=== PATIENT | female | born 1960 | race Caucasian/White ===

== ENCOUNTER 2019-02-03 10:23 | Day surgery (SDC) | payer BC ==
[2019-02-03] MEDS ORDERED: Iopamidol 370 76% 100 ML VIAL ONE (10:53)
[2019-02-03] MEDS ORDERED: Heparin 10,000 UNITS/1 ML VIAL ONE (11:35)
[2019-02-03] MEDS ORDERED: Verapamil 5 MG/2 ML VIAL ONE (11:35)
[2019-02-03] MEDS ORDERED: Nitroglycerin 100MG/250ML BOT 250 ML ONE (11:41)
[2019-02-03] MEDS ORDERED: Midazolam HCl 2 mg/2 ml Vial ONE (12:28)
[2019-02-03] MEDS ORDERED: Fentanyl 100 MCG/2 ML VIAL ONE (12:28)
== END 2019-02-03 16:05 | disposition home or self-care (01) ==
LOC: CCL 10:23
PROVIDERS: ATTEND Internal Medicine Cardiovascular Disease
PROC: 4A023N7 Measurement of Cardiac Sampling and Pressure, Left Heart, Percutaneous Approach (ICD-10-PCS; principal; 2019-02-03)
PROC: B2111ZZ Fluoroscopy of Multiple Coronary Arteries using Low Osmolar Contrast (ICD-10-PCS; principal; 2019-02-03)
DX: I25.10 Atherosclerotic heart disease of native coronary artery without angina pectoris (principal); I73.9 Peripheral vascular disease, unspecified; I10 Essential (primary) hypertension; E87.6 Hypokalemia; E78.00 Pure hypercholesterolemia, unspecified; F17.210 Nicotine dependence, cigarettes, uncomplicated; Z79.02 Long term (current) use of antithrombotics/antiplatelets; Z79.899 Other long term (current) drug therapy
CPT/HCPCS: 76942; 93458; 99152; 99153; C1769; J1644; J2250; J3010; Q9967

== ENCOUNTER 2019-04-01 12:04 | Outpatient (CLI) | payer BC ==
--- NOTE | 2019-04-01 13:51 | RAD ---
XR Knee Rt 2 View HISTORY: Right knee pain FINDINGS: No fracture or dislocation is identified.
--- NOTE | 2019-04-01 13:59 | RAD ---
XR Knee Lt 2 View: 04/01/2019 12:00 AM CLINICAL INDICATION: Pain COMPARISON: None. FINDINGS: Fracture:No fracture. Arthropathy:None of significance. Incidental findings:Vascular calcification IMPRESSION: 1. No acute osseous abnormality.
== END 2019-04-01 12:05 | disposition home or self-care (01) ==
LOC: BICRAD 12:04
PROVIDERS: ATTEND Specialist
DX: M25.562 Pain in left knee (principal); M25.561 Pain in right knee

== ENCOUNTER 2019-05-13 09:30 | Outpatient (CLI) | payer BC ==
[2019-05-13] MEDS ORDERED: Iopamidol 370 76% 100 ML VIAL ONE (10:35)
--- NOTE | 2019-05-13 12:39 | CT ---
CT ANGIOGRAM OF THE ABDOMEN WITH BILATERAL LOWER EXTREMITY RUNOFF: Date: 05/13/19 COMPARISON: 04/13/15. TECHNIQUE: CT angiogram of the abdominal aorta and bilateral lower extremity runoff is performed in the axial pl ane. Three-dimensional reformatted images are submitted for interpretation. FINDINGS: ABDOMEN CT: Chronic changes in the lung bases. Heart size is normal. No significant pericardial fluid. There is appropriate arterial phase enhancement of the liver, spleen, pancreas, and adrenal glands. Surgically absent gallbladder. No gastrohepatic, retrocrural, or periportal lymphadenopathy. No mesenteric mass, lymphadenopathy, free air, or free fluid. Symmetric enhancement of the kidneys. No obstructive uropathy. Stable left extrarenal pelvis. Limited evaluation of the alimentary canal by the lack of oral contrast. No evidence of bowel obstruc tion. Ileocecal junction is normal. Scattered fecal material in nondistended colon. CT PELVIS: Hysterectomy changes. No pelvic mass, lymphadenopathy, free air, or free fluid. Urinary bladder is un remarkable. There are no lytic or blastic lesions in the osseous structures. Incidental dorsal column stimulator is noted with the distal tip not included on this exam. CT ANGIOGRAM OF AORTA: There is atherosclerosis of a nonaneurysmal descending thoracic aorta. Calcification without signific ant stenosis of the origin of the celiac artery. There is also calcification without significant sten osis in the origin of the superior mesenteric artery. Bilateral renal artery ostia are patent. There are two left renal arteries and a solitary right renal artery. There is a stent in the infrarenal abd ominal aorta which is patent. There is a bypass starting at the distal abdominal aorta. There is bypa ss of the [place] common iliac arteries which are occluded. The bypass appears to be patent. Right lower extremity: There is postsurgical change in the region of the right common femoral artery . The profunda femoral artery is patent. The superficial femoral artery is patent. The popliteal jessica ry and arterial trifurcation are patent. Left lower extremity: There is postsurgical change at the level of the common femoral artery. The co mmon femoral artery is patent. Short-segment moderate stenosis at the origin of the superficial femor al artery. The remainder of the superficial femoral artery is patent. Popliteal artery is patent. Art erial trifurcation is patent. The arteries of the lower extremity are also patent. IMPRESSION: Evidence of an aortobifemoral bypass which is patent. There is postsurgical change at the level of th e left and right common femoral arteries. There is no significant stenosis in either lower extremity arterial system. There is 3 vessel flow down to the level of the left and right ankle. POS: MARY KATE
== END 2019-05-13 09:31 | disposition home or self-care (01) ==
LOC: CT 09:30
PROVIDERS: ATTEND Internal Medicine Cardiovascular Disease
DX: I70.213 Atherosclerosis of native arteries of extremities with intermittent claudication, bilateral legs (principal); Z98.890 Other specified postprocedural states
CPT/HCPCS: 75635; 82565; Q9967

== ENCOUNTER 2019-11-24 12:44 | Outpatient (CLI) | payer BC ==
[2019-11-24] MEDS ORDERED: Iopamidol 370 76% 100 ML VIAL ONE (13:22)
--- NOTE | 2019-11-24 14:34 | CT ---
CT ANGIOGRAM NECK: DATE: 11/24/2019. COMPARISON: None available. HISTORY: Carotid stenosis on recent ultrasound. TECHNIQUE: Serial axial CT imaging at1.25 mm from thelung apices through skull base with IV contrast using CT an giogram protocol.. Coronal and sagittal 3D reformatted imaging. FINDINGS: There are significant bilateral pulmonary parenchymal emphysematous changes within the imaged lung ap ices. There is a nodule in the right upper lobe on axial image 46 and coronal image 52 measuring 5 mm. There is partial opacification of the ethmoid air cells bilaterally and there is partial opacificatio n of right mastoid air cells. There is evidence of bilateral paranasal sinus surgery. Mild mucosal thickening of the left maxillary sinus noted. Retroantral and parapharyngeal fat appears clear bilaterally. Bilateral parotid and submandibular gla nds unremarkable. Partially visualized subcarinal adenopathy noted measuring 1.8 cm in short axis dimension. There is l ymphadenopathy in the right tracheoesophageal groove measuring 1.3 cm in short axis dimension, best seen on axial image 72. Thyroid gland is diffusely prominent but otherwise unremarkable. Multiple mildly enlarged lymph nodes are noted within the right paratracheal region measuring up to 1 .3 cm in short axis dimension. Multiple mildly prominent lymph nodes are noted in the AP window. No discrete aerodigestive tract lesion noted on this examination. No lymphadenopathy is appreciated w ithin the neck on the right. No enlarged lymph nodes are noted within the neck on the left. Mildly prominent but nonenlarged level II lymph nodes are noted bilaterally. No hemodynamically significant stenosis is seen at the origin of the innominate artery, either common carotid artery, or either subclavian artery. Mild stenosis at the origin of the left common carotid artery noted on the basis of partially calcified plaque. There is a focal area of moderate st enosis at the origin of the left vertebral artery. Origin of the right vertebral artery appears grossly unremarkable. The left vertebral artery is dominant. The right vertebral artery is hypoplasti c and ends in PICA. On the basis of NASCET criteria there is no hemodynamically significant stenosis involving the right internal carotid artery or right common carotid artery. Mild calcified plaque noted at the origin of the right internal carotid artery. There is focal calcified plaque involving the distal left CCA as well as the proximal left ICA and pr oximal left ECA. There is a focal area of severe stenosis at the junction of the distal left CCA and proximal left ICA, difficult to quantify secondary to the degree of atherosclerotic calcification . This is best seen on axial image 134 and sagittal image 70 where a focal area of stenosis in this region is felt to it least measure 80-90%. This focal area of stenosis is only appreciated on 2-3 axi al cuts suggesting that it is less than 5 mm in craniocaudal extension. Further distally, bilateral internal carotid arteries appear grossly unremarkable. Review of the osse ous structures demonstrates no worrisome lytic or blastic bone lesions. IMPRESSION: 1. Focal area of severe stenosis at the junction of the left common carotid artery and internal sims tid artery as above. 2. Focal stenosis at origin of the left vertebral artery. 3. Nonspecific lymphadenopathy within the chest. This may signify malignancy. Dedicated chest CT wit h IV contrast advised. Emphysematous changes are noted in the lung apices and there is a subcentimeter right upper lobe pulmonary nodule. CODE T Transcribed Date/Time: 11/24/2019 2:58 PM
== END 2019-11-24 12:45 | disposition home or self-care (01) ==
LOC: CT 12:44
PROVIDERS: ATTEND Thoracic Surgery (Cardiothoracic Vascular Surgery)
DX: I65.23 Occlusion and stenosis of bilateral carotid arteries (principal); I65.02 Occlusion and stenosis of left vertebral artery; I65.22 Occlusion and stenosis of left carotid artery; R59.0 Localized enlarged lymph nodes
CPT/HCPCS: 70498; Q9967

== ENCOUNTER 2019-11-26 05:49 | Inpatient (IN) | payer BC ==
[2019-11-26] MEDS ORDERED: Phenylephrine HCL 10 MG/ML VIAL ONE (06:28)
[2019-11-26] MEDS ORDERED: Nitroglycerin 50 MG/250 ML BOT 250 ML ONE (06:28)
[2019-11-26] MEDS ORDERED: Midazolam HCl 2 mg/2 ml Vial ONE (06:29)
[2019-11-26] MEDS ORDERED: Fentanyl 100 MCG/2 ML VIAL ONE ×2 (06:29→09:19)
[2019-11-26] MEDS ORDERED: ePHEDrine/0.9% NaCl/PF SYRINGE 50 mg/10 ml ONE (06:29)
[2019-11-26] MEDS ORDERED: Heparin 5,000 UNITS/ML VIAL ONE (06:31)
[2019-11-26] MEDS ORDERED: EPINEPHrine 1 MG/ML AMP ONE (06:31)
[2019-11-26] MEDS ORDERED: Protamine Sulfate 50 MG/5 ML VIAL ONE (06:31)
[2019-11-26] MEDS ORDERED: Bupivacaine PF 0.5% 30 ML VIAL ONE (06:31)
[2019-11-26 07:06] LABS: Hemoglobin 15.8 g/dL (12.0-16.0); Mean Corpuscular HGB CONC 33.7 g/dL (32.0-36.0); Mean Corpuscular Hemoglobin 33.2 pg (27.0-31.0); Mean Corpuscular Volume 98.6 fL (78.0-98.0); Mean Platelet Volume 8.6 fL (7.4-10.4); Platelet Count 248 thou/uL (130-400); Red Blood Cell (RBC) Count 4.75 mill/uL (4.20-5.40)
[2019-11-26 07:27] LABS: Band 4 % (5-11); Eosinophils 2 % (0-10); Lymphocytes 29 % (21-51); MDiff Complete? YES; Monocytes 7 % (0-10); Neutrophil 52 % (42-75); RBC Morphology Normal; Reactive Lymphocytes 6 % (0-10)
[2019-11-26 07:31] LABS: Chloride 106 mmol/L (98-107); Potassium 3.3 mmol/L (3.5-5.1); Sodium 139 mmol/L (136-145)
[2019-11-26 07:32] LABS: Calcium 8.4 mg/dL (7.8-10.44); Glucose 99 mg/dL (70-105)
[2019-11-26 07:34] LABS: Anion Gap 13 mmol/L (10-20); Carbon Dioxide 23 mmol/L (22-29)
[2019-11-26 07:36] LABS: Calc. Creatinine Clearance 58 mL/min (70-130); Estimated GFR-MDRD 53
[2019-11-26 07:37] LABS: BUN (Urea Nitrogen) 10 mg/dL (9.8-20.1)
[2019-11-26] MEDS ORDERED: SUGAMMADEX SODIUM 200 MG/2 ML VIAL ONE (08:38)
[2019-11-26] MEDS ORDERED: Morphine 2 MG/ML SYRINGE ONE (09:12)
[2019-11-26] MEDS ORDERED: traMADol HCl 50 MG TAB PO PRN (09:52)
[2019-11-26] MEDS ORDERED: hydrALAZINE 20 MG/ML VIAL SLOW IVP PRN (09:52)
[2019-11-26] MEDS ORDERED: Ondansetron PF 4 MG/2 ML Vial IVP PRN (09:52)
[2019-11-26] MEDS ORDERED: Fentanyl 100 MCG/2 ML VIAL SLOW IVP PRN (09:52)
[2019-11-26] MEDS ORDERED: Phenylephrine 10 MG/NS 250 ML 250 ML IVPB PRN (09:52)
[2019-11-26] MEDS ORDERED: Nitroglycerin 50 MG/250 ML BOT 250 ML IVPB PRN (09:52)
[2019-11-26] MEDS ORDERED: Acetaminophen 325 MG TAB PO PRN (09:52)
[2019-11-26] MEDS ORDERED: Promethazine HCl 25 MG/ML VIAL IM PRN (09:52)
--- NOTE | 2019-11-26 10:27 | OP ---
DATE OF PROCEDURE: 11/26/2019 PREOPERATIVE DIAGNOSIS: Asymptomatic left carotid stenosis. POSTOPERATIVE DIAGNOSIS: Asymptomatic left carotid stenosis. PROCEDURE PERFORMED: Left carotid endarterectomy with patch angioplasty. ANESTHESIA: General endotracheal, Dr. Seth Garay. ESTIMATED BLOOD LOSS: Less than 100. DRAINS: None. SPECIMENS: Left internal jugular chain lymph node. DESCRIPTION OF PROCEDURE: After operative consent was obtained, the patient was brought to the operating room and placed in supine position on the operating room table. Appropriate central line and monitors were placed and general endotracheal anesthesia was induced. Head was rotated to the right, neck extended. Joints were appropriately padded and supported. Left neck was then interrogated with ultrasound and the carotid bifurcation marked. Left neck was prepped and draped in usual sterile fashion. Skin incision was made along the anterior border of the sternocleidomastoid. Platysma was incised with electrocautery. Left sternocleidomastoid was mobilized. Facial vein was divided between clips and ties. Carotid sheath was entered. Two lymph nodes were taken and sent for routine examination. The internal, common, and external carotid arteries were carefully exposed. Hypoglossal and vagus nerves were noted and protected throughout the procedure. The patient was systemically heparinized. After 3 minutes, internal, common, and external carotid arteries were serially clamped. An incision was made on the common carotid artery extended through the bulb onto the internal carotid artery distal to the plaque. An 8-Cypriot Mccleary shunt was placed and antegrade flow re-established. Endarterectomy was begun on the common carotid artery extended through the bulb onto the internal carotid artery distal to plaque. A good tapered distal endpoint was obtained. An eversion endarterectomy was performed of the external carotid artery. Medial fibers were debrided. The carotid was copiously irrigated. Bovine pericardial patch was sewn in place with running 6-0 Prolene suture. Prior to completion of patch suture line, shunt was clamped and removed. Arteries were back bled and flushed with heparinized saline. Suture line was completed. Antegrade flow was reestablished up the external carotid artery for 10 seconds followed by the internal carotid artery. Protamine was administered. Milka powder was used for hemostasis. There was a palpable pulse in the internal carotid artery distal to our endarterectomy. Wounds were copiously irrigated and closed in layers and Dermabond applied to skin. The patient was awakened and neurologically intact at completion. The patient tolerated the procedure well, was transferred to the recovery room in stable condition. Needle, sponge, and instrument counts were all reported as correct at the end of the procedure. Job ID: [id number]
[2019-11-26] MEDS ORDERED: Nitroglycerin 2% Ointment 1 INCH/1 GM Packet ONE (10:34)
--- NOTE | 2019-11-26 11:19 | CON ---
DATE OF CONSULTATION: 11/26/2019 REASON FOR CONSULTATION: Jaw pain in the postoperative period. HISTORY OF PRESENT ILLNESS: Ms. Terri Ferreira is a 59-year-old woman with history of severe peripheral vascular disease, coronary artery disease, and severe carotid arterial disease. The patient was found to have a critical stenosis in the left carotid artery on ultrasound and underwent successful endarterectomy today. In the postoperative period, she had jaw pain with T-wave flattening in the anterior leads. The patient received fentanyl. She has actually got much better now and states that the pain is resolving. REVIEW OF SYSTEMS: CONSTITUTIONAL: No significant weight gain or loss. VISION: No changes. HEARING: No changes. PULMONARY: No cough or wheezing. GASTROINTESTINAL: No nausea, vomiting, or diarrhea. SKIN: No rashes. NEUROLOGIC: No unilateral weakness or numbness. PSYCHIATRIC: No unusual depression or anxiety. MEDICATIONS: At home included; 1. Aspirin. 2. Plavix. 3. Diltiazem. 4. Atorvastatin. ALLERGIES: NONE KNOWN. SOCIAL HISTORY: Unfortunately, she continued to smoke. She is addicted to tobacco. She smoked prior to the carotid endarterectomy this morning, I am told. PHYSICAL EXAMINATION: GENERAL: This is a groggy, but arousable 59-year-old woman. VITAL SIGNS: Her blood pressure is 87/50, pulse 87 and it is regular. HEENT: Eyes; sclerae nonicteric. Mouth; mucous membranes moist. NECK: Supple. No lymphadenopathy. LUNGS: Clear. No wheezing. CARDIAC: Normal S1, normal S2. There is no murmur, rub, or gallop. ABDOMEN: Soft and nontender. EXTREMITIES: Warm and dry. No clubbing. No cyanosis. There is no edema. DIAGNOSTIC STUDIES: EKG; sinus rhythm, just some T-wave flattening, but no definite abnormalities. ASSESSMENT: 1. Some postoperative angina. 2. Severe peripheral vascular disease as outlined in the chart. 3. Cardiac catheterization done in 2019 showed 50% LAD lesion, 40% sequential right coronary lesions, no flow-limiting disease. PLAN: 1. Continue aspirin and Plavix. 2. She has been given nitrates. 3. We will follow with you during this hospitalization. Job ID: [id number]
[2019-11-26] MEDS ORDERED: Dexamethasone 20 MG/5 ML VIAL ONE (11:56)
[2019-11-26] MEDS ORDERED: Lidocaine 1% PF 5 ML VIAL ONE (11:56)
[2019-11-26] MEDS ORDERED: Rocuronium Bromide 10 MG/ML (10ML VIAL) ONE (11:56)
[2019-11-26] MEDS ORDERED: Glycopyrrolate 0.2 MG/ML 5 ML SYRINGE ONE (11:56)
[2019-11-26] MEDS ORDERED: PROPOFOL 200 MG/20 ML VIAL ONE (11:56)
[2019-11-26] MEDS ORDERED: Ondansetron PF 4 MG/2 ML Vial ONE (11:56)
[2019-11-26] MEDS ORDERED: Succinylcholine Chloride 20 MG/ML 10 ml SYRINGE FS ONE (11:56)
[2019-11-26 12:13] VITALS: BMI 25.2
[2019-11-26] MEDS: Sodium Chloride 0.9% 1,000 ML IV SCH ×2 (12:16→20:02)
[2019-11-26 12:28] VITALS: BP 140/69
[2019-11-26] MEDS: CEFAZOLIN 2 GM in Premix Bag 1 BAG IVPB SCH ×2 (13:14→21:59)
[2019-11-26 19:50] VITALS: TEMP 97.8
[2019-11-26] MEDS ORDERED: Aspirin 81 mg Enteric Coated Tablet PO SCH (21:00)
[2019-11-26] MEDS ORDERED: Atorvastatin Calcium 40 MG TAB PO SCH (21:00)
[2019-11-27] MEDS: CEFAZOLIN 2 GM in Premix Bag 1 BAG IVPB SCH (05:38)
[2019-11-27] MEDS: Sodium Chloride 0.9% 1,000 ML IV SCH (05:39)
--- NOTE | 2019-11-27 07:20 | DIS ---
DATE OF ADMISSION: 11/26/2019 DATE OF DISCHARGE: 11/27/2019 DIAGNOSIS: Asymptomatic critical left carotid stenosis. PROCEDURE PERFORMED: Left carotid endarterectomy with patch angioplasty. DESCRIPTION OF HOSPITAL STAY: Ms. Ferreira underwent elective carotid endarterectomy. She has done well and being discharged to home in good condition to follow up with me in 2 weeks. DISCHARGE MEDICATIONS: Unchanged from her home regimen. Job ID: [id number]
[2019-11-27] MEDS ORDERED: Cilostazol 100 MG TAB PO SCH (07:30)
[2019-11-27] MEDS ORDERED: Clopidogrel Bisulfate 75 MG TAB PO SCH (09:00)
[2019-11-27] MEDS ORDERED: CeleCOXIB 100 MG CAP PO SCH (09:00)
== END 2019-11-27 07:35 | disposition home or self-care (01) | DRG 39 ==
LOC: SURG A 05:49 → CCU 11:23
PROVIDERS: ADMIT Thoracic Surgery (Cardiothoracic Vascular Surgery); ATTEND Thoracic Surgery (Cardiothoracic Vascular Surgery)
PROC: 03CL0ZZ Extirpation of Matter from Left Internal Carotid Artery, Open Approach (ICD-10-PCS; principal; 2019-11-26)
PROC: 03CJ0ZZ Extirpation of Matter from Left Common Carotid Artery, Open Approach (ICD-10-PCS; 2019-11-26)
PROC: 03UJ0JZ Supplement Left Common Carotid Artery with Synthetic Substitute, Open Approach (ICD-10-PCS; 2019-11-26)
PROC: 03UL0JZ Supplement Left Internal Carotid Artery with Synthetic Substitute, Open Approach (ICD-10-PCS; 2019-11-26)
PROC: 07B20ZX Excision of Left Neck Lymphatic, Open Approach, Diagnostic (ICD-10-PCS; 2019-11-26)
DX: I65.22 Occlusion and stenosis of left carotid artery (principal); I25.118 Atherosclerotic heart disease of native coronary artery with other forms of angina pectoris; Z79.899 Other long term (current) drug therapy; Z79.82 Long term (current) use of aspirin; Z79.02 Long term (current) use of antithrombotics/antiplatelets
CPT/HCPCS: 36415; 70498; 80048; 85025; 88184; 88307; 93005; 93010; 94640; J0171; J0690; J1100; J1642; J1644; J2001; J2250; J2270; J2370; J2405; J2704; J2720; J3010; J7620; Q9967; S0020

== ENCOUNTER 2022-02-10 14:06 | Emergency (ER) | payer BC, SELFPAY | END 2022-02-10 16:05 | disposition home or self-care (01) | LOC: ERS 14:06 | DX: M79.89 Other specified soft tissue disorders (principal); I25.2 Old myocardial infarction; I25.10 Atherosclerotic heart disease of native coronary artery without angina pectoris; F17.210 Nicotine dependence, cigarettes, uncomplicated; Z79.899 Other long term (current) drug therapy ==

== ENCOUNTER 2023-02-16 08:56 | Outpatient (CLI) | payer BC | END 2023-02-16 08:57 | disposition home or self-care (01) | LOC: BICCT 08:56 | PROVIDERS: ATTEND Specialist | DX: I71.30 Abdominal aortic aneurysm, ruptured, unspecified (principal) | CPT/HCPCS: 82565 ==

== ENCOUNTER 2023-02-20 12:29 | Outpatient (CLI) | payer BC ==
[2023-02-20] MEDS ORDERED: Iopamidol-370 76% 500 ML MDV (1 ML CHARGE) ONE (14:54)
== END 2023-02-20 12:30 | disposition home or self-care (01) ==
LOC: BICCT 12:29
PROVIDERS: ATTEND Specialist
DX: I71.30 Abdominal aortic aneurysm, ruptured, unspecified (principal)
CPT/HCPCS: 74174

== ENCOUNTER 2023-06-28 12:51 | Outpatient (CLI) | payer BC ==
[2023-06-28] MEDS ORDERED: Iopamidol-370 76% 500 ML MDV (1 ML CHARGE) ONE (12:52)
== END 2023-06-28 12:52 | disposition home or self-care (01) ==
LOC: BICCT 12:51
PROVIDERS: ATTEND Internal Medicine Cardiovascular Disease
DX: I73.9 Peripheral vascular disease, unspecified (principal)
CPT/HCPCS: 75635; 82565; Q9967

== ENCOUNTER 2023-07-23 10:30 | Inpatient (IN) | payer BC ==
[2023-07-23 11:05] VITALS: BMI 23.3
[2023-07-23 11:29] LABS: Hematocrit 44.8 % (34.9-44.5); Hemoglobin 14.6 g/dL (12.0-15.5); Mean Corpuscular HGB CONC 32.6 g/dL (32.0-36.0); Mean Corpuscular Volume 101.1 fl (81.6-98.3); Mean Platelet Volume 10.9 fl (7.4-10.4); Platelet Count 237 10x3/uL (150-450); RBC Distribution Width 14.7 % (11.5-14.5); Red Blood Cell (RBC) Count 4.43 10x6/uL (3.90-5.03); White Blood Cell (WBC) Count 9.6 10x3/uL (3.5-10.5)
[2023-07-23 12:04] LABS: Anion Gap 13 mmol/L (10-20); BUN (Urea Nitrogen) 13 mg/dL (9.8-20.1); Calc. Creatinine Clearance 0 mL/min (70-130); Calcium 9.5 mg/dL (7.8-10.44); Carbon Dioxide 26 mmol/L (23-31); Chloride 104 mmol/L (98-107); Estimated GFR 54; Glucose 112 mg/dL (80-115); Potassium 4.4 mmol/L (3.5-5.1); Sodium 139 mmol/L (136-145)
[2023-07-24] MEDS ORDERED: Rocuronium Bromide 10 MG/ML (10ML VIAL) ONE (06:38)
[2023-07-24] MEDS ORDERED: Lidocaine 1% PF 5 ML VIAL ONE (06:38)
[2023-07-24] MEDS ORDERED: Ondansetron PF 4 MG/2 ML Vial ONE (06:38)
[2023-07-24] MEDS ORDERED: NEOSTIGMINE 3 MG/3 ML SYR 3 MG/3 ML SYRINGE ONE (06:38)
[2023-07-24] MEDS ORDERED: PROPOFOL 200 MG/20 ML VIAL ONE (06:38)
[2023-07-24] MEDS ORDERED: Glycopyrrolate 0.2 MG/ML 5 ML SYRINGE ONE (06:38)
[2023-07-24] MEDS ORDERED: Dexamethasone 20 MG/5 ML VIAL ONE (06:38)
[2023-07-24] MEDS ORDERED: Heparin 5,000 UNITS/ML VIAL ONE (06:41)
[2023-07-24] MEDS ORDERED: Dexamethasone 4 mg/ml Vial ONE (06:41)
[2023-07-24] MEDS ORDERED: Bupivacaine PF 0.5% 30 ML VIAL ONE (06:41)
[2023-07-24] MEDS ORDERED: EPINEPHrine 1 MG/ML AMP ONE (06:41)
[2023-07-24] MEDS ORDERED: Protamine Sulfate 50 MG/5 ML VIAL ONE (06:41)
[2023-07-24] MEDS ORDERED: fentaNYL 50 mcg/mL 1 mL Vial ONE ×2 (06:50→09:45)
[2023-07-24] MEDS ORDERED: Midazolam HCl 2 mg/2 ml Vial ONE (06:50)
[2023-07-24] MEDS ORDERED: Lidocaine 1% MPF 2 ML VIAL ONE (06:50)
[2023-07-24] MEDS ORDERED: Sodium Chloride 0.9% 100 ML ONE (07:27)
[2023-07-24] MEDS ORDERED: CEFAZOLIN 2 GM VIAL ONE (07:27)
[2023-07-24] MEDS ORDERED: Phenylephrine 10 MG/ML VIAL ONE (07:32)
[2023-07-24] MEDS ORDERED: Ondansetron HCl/PF 4 MG/2 ML Vial IVP PRN (09:28)
[2023-07-24] MEDS ORDERED: Promethazine HCl 25 MG/ML VIAL IM PRN (09:28)
[2023-07-24] MEDS ORDERED: hydrALAZINE 20 MG/ML VIAL SLOW IVP PRN (09:34)
[2023-07-24] MEDS ORDERED: Ipratropium/Albuterol 3 ML NEB NEB PRN (09:34)
[2023-07-24] MEDS ORDERED: Acetaminophen 325 MG TAB PO PRN (09:34)
[2023-07-24] MEDS ORDERED: Ondansetron PF 4 MG/2 ML Vial IVP PRN (09:34)
[2023-07-24] MEDS ORDERED: fentaNYL 50 mcg/mL 1 mL Vial SLOW IVP PRN ×2 (09:34)
[2023-07-24] MEDS ORDERED: HYDROcodone/Acetaminophen 7.5/325 mg Tablet PO PRN (09:34)
[2023-07-24] MEDS ORDERED: D5 1/2 NS w/20 mEq KCL 1,000 ML ONE (10:20)
[2023-07-24] MEDS ORDERED: Ipratropium/Albuterol 3 ML NEB ONE (11:02)
[2023-07-24] MEDS ORDERED: Sodium Chloride For Inhalation 0.9% 3 ML NEB ONE (11:03)
[2023-07-24] MEDS: D5 1/2 NS w/20 mEq KCL 1,000 ML IV SCH ×2 (14:16→21:40)
[2023-07-24] MEDS: CEFAZOLIN 2 GM in Sodium Chloride 0.9% 100 ML IVPB SCH ×2 (15:48→21:42)
[2023-07-24] MEDS: Cyclobenzaprine 10 MG TAB PO SCH ×2 (15:48→21:43)
[2023-07-24] MEDS ORDERED: Atorvastatin Calcium 40 MG TAB PO SCH (21:00)
[2023-07-24] MEDS ORDERED: DILTIAZEM HCL 120 MG PO SCH (21:00)
[2023-07-24] MEDS ORDERED: Aspirin 81 mg Enteric Coated Tablet PO SCH (21:00)
[2023-07-24] MEDS ORDERED: Non-Formulary Item 1 EACH (Atorvastatin Calcium [Atorvastatin Calcium] 80 MG Tablet) PO SCH (21:00)
[2023-07-24] MEDS: dilTIAZem CD 120 MG CAP PO SCH (21:43)
[2023-07-24] MEDS: Ipratropium/Albuterol 3 ML NEB NEB SCH (22:27)
[2023-07-25] MEDS ORDERED: Mometasone 100 MCG HFA INHALER (RT USE) INH SCH (06:30)
[2023-07-25] MEDS: Ipratropium/Albuterol 3 ML NEB NEB SCH ×2 (07:31→13:31)
[2023-07-25] MEDS: CEFAZOLIN 2 GM in Sodium Chloride 0.9% 100 ML IVPB SCH (07:43)
[2023-07-25] MEDS: D5 1/2 NS w/20 mEq KCL 1,000 ML IV SCH (07:45)
[2023-07-25] MEDS ORDERED: Fluticasone/Umeclidin/Vilanter [Trelegy Ellipta 100-62.5-25] INH SCH (09:00)
[2023-07-25] MEDS ORDERED: Sertraline 100 MG TAB PO SCH (09:00)
[2023-07-25] MEDS ORDERED: Clopidogrel Bisulfate 75 MG TAB PO SCH (09:00)
[2023-07-25] MEDS ORDERED: Bupropion 150 MG SR.TAB PO SCH (09:00)
[2023-07-25] MEDS ORDERED: CeleCOXIB 100 MG CAP PO SCH (09:00)
[2023-07-25] MEDS ORDERED: Non-Formulary Item 1 EACH (Bupropion Hcl [Bupropion Hcl Sr] 150 MG Tab) PO SCH (09:00)
[2023-07-25] MEDS ORDERED: CELECOXIB 400 MG PO SCH (09:00)
[2023-07-25] MEDS ORDERED: Non-Formulary Item 1 EACH (Fluticasone/Umeclidin/Vilanter [Trelegy Ellipta 100-62.5-25] 1 INH SCH (09:00)
[2023-07-25] MEDS: Cyclobenzaprine 10 MG TAB PO SCH (10:31)
[2023-07-25] MEDS: dilTIAZem CD 120 MG CAP PO SCH (10:32)
[2023-07-25 13:04] VITALS: BP 102/66; TEMP 97.9
== END 2023-07-25 13:36 | disposition home or self-care (01) | DRG 254 ==
LOC: SURG A 07-24 06:12 → EDSTATUS 07-24 10:30 → 2NO 07-24 13:39
PROVIDERS: ADMIT Thoracic Surgery (Cardiothoracic Vascular Surgery); ATTEND Thoracic Surgery (Cardiothoracic Vascular Surgery)
PROC: 04CL0ZZ Extirpation of Matter from Left Femoral Artery, Open Approach (ICD-10-PCS; principal; 2023-07-24)
PROC: 04UL0KZ Supplement Left Femoral Artery with Nonautologous Tissue Substitute, Open Approach (ICD-10-PCS; 2023-07-24)
PROC: 3E033XZ Introduction of Vasopressor into Peripheral Vein, Percutaneous Approach (ICD-10-PCS; 2023-07-24)
DX: I73.9 Peripheral vascular disease, unspecified (principal); I77.1 Stricture of artery; N13.5 Crossing vessel and stricture of ureter without hydronephrosis; F17.200 Nicotine dependence, unspecified, uncomplicated; I25.10 Atherosclerotic heart disease of native coronary artery without angina pectoris; E78.00 Pure hypercholesterolemia, unspecified; Z98.890 Other specified postprocedural states; Z90.49 Acquired absence of other specified parts of digestive tract; Z83.3 Family history of diabetes mellitus; Z82.49 Family history of ischemic heart disease and other diseases of the circulatory system
CPT/HCPCS: 80048; 85027; 86850; 86900; 86901; 94640; C1713; C1768; J0171; J1100; J1642; J1644; J2250; J2370; J2405; J2704; J2720; J3010; J3480; J3490; J7620; S0020

== ENCOUNTER 2023-07-23 10:40 | Outpatient (CLI) | payer BC | END 2023-07-23 10:41 | disposition home or self-care (01) | LOC: LABBT 10:40 | PROVIDERS: ATTEND Thoracic Surgery (Cardiothoracic Vascular Surgery) | DX: Z01.812 Encounter for preprocedural laboratory examination (principal); R51.9 Headache, unspecified; Z53.9 Procedure and treatment not carried out, unspecified reason | CPT/HCPCS: 80048; 85027; 86850; 86900; 86901 ==

== ENCOUNTER 2024-05-04 20:57 | Observation (INO) | payer BC ==
[2024-05-04 21:50] LABS: #Basophils 0.05 10x3/uL (0.0-0.2); %Basophils 0.5 % (0.0-1.0); %Eosinophils 2.6 % (0.0-10.0); %Lymphocytes 20.2 % (21.0-51.0); %Monocytes 7.6 % (0.0-10.0); %Neutrophils 68.9 % (42.0-75.0); Hematocrit 40.2 % (36.0-47.0); Hemoglobin 13.9 g/dL (12.0-16.0); Mean Corpuscular HGB CONC 34.6 g/dL (32.0-36.0); Mean Corpuscular Hemoglobin 36.1 pg (27.0-31.0); Mean Corpuscular Volume 104.4 fL (78.0-98.0); Mean Platelet Volume 10.3 fL (7.4-10.4); Platelet Count 261 10x3/uL (130-400); RBC Distribution Width 14.8 % (11.5-14.5); Red Blood Cell (RBC) Count 3.85 mill/uL (4.20-5.40)
[2024-05-04] MEDS ORDERED: Furosemide 40 MG (4 mL) VIAL ONE (22:25)
[2024-05-04 23:26] LABS: ALT (SGPT) 32 U/L (8-55); AST (SGOT) 28 U/L (5-34); Albumin 3.3 g/dL (3.4-4.8); Alkaline Phosphatase 309 U/L (40-110); Anion Gap 12 mmol/L (10-20); BUN (Urea Nitrogen) 20 mg/dL (9.8-20.1); Bilirubin, Total 0.7 mg/dL (0.2-1.2); Calc. Creatinine Clearance 0 mL/min (70-130); Carbon Dioxide 26 mmol/L (23-31); Chloride 102 mmol/L (98-107); Estimated GFR 46; Globulin 3.5 g/dL (2.4-3.5); Glucose 115 mg/dL (80-115); Potassium 4.1 mmol/L (3.5-5.1); Protein, Total 6.8 g/dL (5.8-8.1); Sodium 136 mmol/L (136-145)
[2024-05-04 23:28] LABS: Troponin I 0.012 ng/mL (< 0.028)
[2024-05-05] MEDS ORDERED: Ipratropium/Albuterol 3 ML NEB NEB PRN (00:48)
[2024-05-05] MEDS ORDERED: Acetaminophen 325 MG TAB PO PRN (00:57)
[2024-05-05] MEDS ORDERED: Acetaminophen 650 MG Suppository PR PRN (00:57)
[2024-05-05] MEDS: Ipratropium/Albuterol 3 ML NEB NEB SCH (02:33)
[2024-05-05 02:42] LABS: #Basophils 0.05 10x3/uL (0.0-0.2); %Basophils 0.5 % (0.0-1.0); %Eosinophils 2.6 % (0.0-10.0); %Lymphocytes 17.5 % (21.0-51.0); %Monocytes 7.2 % (0.0-10.0); %Neutrophils 71.8 % (42.0-75.0); Hematocrit 43.4 % (36.0-47.0); Hemoglobin 14.8 g/dL (12.0-16.0); Mean Corpuscular HGB CONC 34.1 g/dL (32.0-36.0); Mean Corpuscular Hemoglobin 35.2 pg (27.0-31.0); Mean Corpuscular Volume 103.3 fL (78.0-98.0); Mean Platelet Volume 10.4 fL (7.4-10.4); Platelet Count 246 10x3/uL (130-400); RBC Distribution Width 14.7 % (11.5-14.5)
[2024-05-05 03:19] LABS: Troponin I Less than 0.010 ng/mL (< 0.028)
[2024-05-05 04:58] LABS: Anion Gap 20 mmol/L (10-20); BUN (Urea Nitrogen) 19 mg/dL (9.8-20.1); Calc. Creatinine Clearance 0 mL/min (70-130); Calcium 9.2 mg/dL (7.8-10.44); Carbon Dioxide 23 mmol/L (23-31); Chloride 99 mmol/L (98-107); Estimated GFR 54; Glucose 113 mg/dL (80-115); Potassium 3.6 mmol/L (3.5-5.1); Sodium 138 mmol/L (136-145)
[2024-05-05 05:44] LABS: Troponin I 0.012 ng/mL (< 0.028)
[2024-05-05] MEDS ORDERED: Ondansetron PF 4 MG/2 ML Vial IVP PRN (08:09)
[2024-05-05] MEDS ORDERED: DILTIAZEM HCL 120 MG PO SCH (09:00)
[2024-05-05] MEDS: Sertraline 100 MG TAB PO SCH (09:33)
[2024-05-05] MEDS: BuPROPion XL 150 MG ER.TAB PO SCH (09:33)
[2024-05-05] MEDS: Clopidogrel Bisulfate 75 MG TAB PO SCH (09:33)
[2024-05-05] MEDS: Famotidine 20 MG TAB PO SCH (09:33)
[2024-05-05] MEDS: Aspirin 81 mg Enteric Coated Tablet PO SCH (09:33)
[2024-05-05] MEDS: Enoxaparin 40 MG (0.4 mL) SYRINGE SC SCH (09:34)
[2024-05-05] MEDS: Furosemide 40 MG (4 mL) VIAL SLOW IVP SCH (09:34)
[2024-05-05] MEDS: Potassium Chloride 20 MEQ TAB PO SCH (10:18)
[2024-05-05 15:19] VITALS: TEMP 97.4
[2024-05-05 15:41] VITALS: BP 140/82
[2024-05-05] MEDS ORDERED: Atorvastatin Calcium 40 MG TAB PO SCH (21:00)
== END 2024-05-05 17:24 | disposition home or self-care (01) ==
LOC: ERS 20:57 → 2NO 23:53
PROVIDERS: ADMIT Student in an Organized Health Care Education/Training Program; ATTEND Internal Medicine
PROC: B246ZZZ Ultrasonography of Right and Left Heart (ICD-10-PCS; principal; 2024-05-05)
DX: I25.10 Atherosclerotic heart disease of native coronary artery without angina pectoris (principal); I73.9 Peripheral vascular disease, unspecified; I10 Essential (primary) hypertension; I08.1 Rheumatic disorders of both mitral and tricuspid valves; J44.89 Other specified chronic obstructive pulmonary disease; R22.42 Localized swelling, mass and lump, left lower limb; F17.210 Nicotine dependence, cigarettes, uncomplicated; Z79.82 Long term (current) use of aspirin; Z79.899 Other long term (current) drug therapy; Z88.8 Allergy status to other drugs, medicaments and biological substances; Z95.1 Presence of aortocoronary bypass graft
CPT/HCPCS: 36415; 71045; 80048; 80053; 83880; 84443; 84484; 85025; 93005; 93306; 94640; 96372; 96374; 96375; G0378; J1650; J1940; J7620

== ENCOUNTER 2025-06-09 21:27 | Observation (INO) | payer MEDICARE, OTHER ==
[2025-06-09 22:01] LABS: #Basophils 0.04 10x3/uL (0.0-0.2); #Eosinophils 0.05 10x3/uL (0.0-0.7); #Monocytes 0.69 10x3/uL (0.11-0.59); #Neutrophils 7.76 10x3/uL (1.40-6.50); %Basophils 0.4 % (0.0-1.0); %Eosinophils 0.5 % (0.0-10.0); %Lymphocytes 16.0 % (21.0-51.0); %Monocytes 6.8 % (0.0-10.0); %Neutrophils 75.9 % (42.0-75.0); Hematocrit 42.9 % (36.0-47.0); Hemoglobin 14.3 g/dL (12.0-16.0); Mean Corpuscular Hemoglobin 32.4 pg (27.0-31.0); Mean Corpuscular Volume 97.1 fL (78.0-98.0); Platelet Count 210 10x3/uL (130-400); Red Blood Cell (RBC) Count 4.42 mill/uL (4.20-5.40); White Blood Cell (WBC) Count 10.21 10x3/uL (4.8-10.8)
[2025-06-09 22:19] LABS: ALT (SGPT) 31 U/L (Less than 34); AST (SGOT) 28 U/L (11-34); Albumin 3.9 g/dL (3.1-4.5); Alkaline Phosphatase 230 U/L (40-110); Anion Gap 16 mmol/L (10-20); BUN (Urea Nitrogen) 27 mg/dL (9.8-20.1); Bilirubin, Total 0.7 mg/dL (0.3-1.2); Calc. Creatinine Clearance 0 mL/min (70-130); Calcium 9.3 mg/dL (7.8-10.44); Carbon Dioxide 23 mmol/L (23-31); Chloride 100 mmol/L (98-107); Globulin 3.6 g/dL (2.4-3.5); Glucose 116 mg/dL (80-115); Potassium 3.1 mmol/L (3.5-5.1); Sodium 136 mmol/L (136-145)
[2025-06-09 22:25] LABS: Troponin I Less than 0.010 ng/mL (< 0.028)
[2025-06-09 23:22] LABS: Magnesium 1.8 mg/dL (1.6-2.6)
[2025-06-09] MEDS ORDERED: Acetaminophen 500 MG TAB ONE (23:43)
[2025-06-09] MEDS ORDERED: Nitroglycerin 2% Ointment 1 INCH/1 GM Packet ONE (23:43)
[2025-06-09] MEDS ORDERED: Potassium Bicarbonate/Cit Ac 20 MEQ TAB ONE (23:43)
[2025-06-09] MEDS ORDERED: Aspirin Chewable 81 MG TAB ONE (23:44)
[2025-06-10] MEDS ORDERED: cloNIDine 0.1 MG TAB PO SCH (00:15)
[2025-06-10] MEDS ORDERED: Nitroglycerin 0.4 MG TAB (25 Tab Bottle) SL PRN (00:24)
[2025-06-10] MEDS: HYDROcodone/Acetaminophen 7.5/325 mg Tablet PO PRN (00:49)
[2025-06-10 01:12] VITALS: BMI 19.5
[2025-06-10 01:28] LABS: Troponin I Less than 0.010 ng/mL (< 0.028)
[2025-06-10 04:49] LABS: #Basophils 0.03 10x3/uL (0.0-0.2); #Eosinophils 0.16 10x3/uL (0.0-0.7); #Monocytes 0.79 10x3/uL (0.11-0.59); #Neutrophils 5.33 10x3/uL (1.40-6.50); %Basophils 0.4 % (0.0-1.0); %Eosinophils 1.9 % (0.0-10.0); %Lymphocytes 25.4 % (21.0-51.0); %Monocytes 9.3 % (0.0-10.0); %Neutrophils 62.8 % (42.0-75.0); Hematocrit 38.0 % (36.0-47.0); Hemoglobin 13.1 g/dL (12.0-16.0); Mean Corpuscular Hemoglobin 33.2 pg (27.0-31.0); Mean Corpuscular Volume 96.2 fL (78.0-98.0); Platelet Count 200 10x3/uL (130-400); Red Blood Cell (RBC) Count 3.95 mill/uL (4.20-5.40); White Blood Cell (WBC) Count 8.48 10x3/uL (4.8-10.8)
[2025-06-10 05:00] LABS: Anion Gap 13 mmol/L (10-20); BUN (Urea Nitrogen) 22 mg/dL (9.8-20.1); Calc. Creatinine Clearance 38 mL/min (70-130); Calcium 8.7 mg/dL (7.8-10.44); Carbon Dioxide 24 mmol/L (23-31); Chloride 101 mmol/L (98-107); Glucose 93 mg/dL (80-115); Magnesium 1.8 mg/dL (1.6-2.6); Potassium 3.0 mmol/L (3.5-5.1); Sodium 135 mmol/L (136-145)
[2025-06-10 05:01] LABS: Troponin I Less than 0.010 ng/mL (< 0.028)
[2025-06-10 08:11] LABS: Troponin I Less than 0.010 ng/mL (< 0.028)
[2025-06-10] MEDS ORDERED: Acetaminophen 325 MG TAB PO PRN (08:46)
[2025-06-10] MEDS: cloNIDine 0.1 MG TAB PO SCH (09:26)
[2025-06-10] MEDS: Aspirin 81 mg Enteric Coated Tablet PO SCH (09:26)
[2025-06-10] MEDS: Enoxaparin 40 MG (0.4 mL) SYRINGE SC SCH (09:30)
[2025-06-10] MEDS: Furosemide 20 MG TAB PO SCH (09:31)
[2025-06-10] MEDS: Spironolactone 25 MG TAB PO SCH (09:31)
[2025-06-10] MEDS: Sertraline 100 MG TAB PO SCH (09:31)
[2025-06-10] MEDS: Potassium Bicarbonate/Cit Ac 20 MEQ TAB PO SCH (15:11)
[2025-06-10 16:13] VITALS: BP 160/74; TEMP 98.1
== END 2025-06-10 17:29 | disposition home or self-care (01) ==
LOC: ERS 21:27 → 2NO 23:34
PROVIDERS: ADMIT Student in an Organized Health Care Education/Training Program; ATTEND Internal Medicine
DX: R07.89 Other chest pain (principal); I48.0 Paroxysmal atrial fibrillation; I10 Essential (primary) hypertension; I25.10 Atherosclerotic heart disease of native coronary artery without angina pectoris; F41.8 Other specified anxiety disorders; E78.5 Hyperlipidemia, unspecified; J44.9 Chronic obstructive pulmonary disease, unspecified; Z79.01 Long term (current) use of anticoagulants; Z79.899 Other long term (current) drug therapy; Z88.8 Allergy status to other drugs, medicaments and biological substances; Z79.82 Long term (current) use of aspirin
CPT/HCPCS: 71045; 78452; 80048; 80053; 83735 ×2; 84484 ×3; 85025 ×2; 93005; 93017; 96372; 99285; A9502; G0378; J1650; J2785 ×2; 36415

== ENCOUNTER 2025-08-03 19:58 | Emergency (ER) | payer MEDICARE, OTHER ==
[2025-08-03 21:42] LABS: #Basophils 0.06 10x3/uL (0.0-0.2); #Eosinophils 0.27 10x3/uL (0.0-0.7); #Monocytes 0.98 10x3/uL (0.11-0.59); #Neutrophils 8.83 10x3/uL (1.40-6.50); %Basophils 0.5 % (0.0-1.0); %Eosinophils 2.2 % (0.0-10.0); %Lymphocytes 16.3 % (21.0-51.0); %Monocytes 8.0 % (0.0-10.0); %Neutrophils 72.6 % (42.0-75.0); Hematocrit 45.6 % (36.0-47.0); Hemoglobin 15.2 g/dL (12.0-16.0); Mean Corpuscular Hemoglobin 31.8 pg (27.0-31.0); Mean Corpuscular Volume 95.4 fL (78.0-98.0); Platelet Count 304 10x3/uL (130-400); Red Blood Cell (RBC) Count 4.78 mill/uL (4.20-5.40); White Blood Cell (WBC) Count 12.18 10x3/uL (4.8-10.8)
[2025-08-03] MEDS ORDERED: Dexamethasone 10 MG/ML VIAL ONE (21:42)
[2025-08-03 22:06] LABS: ALT (SGPT) 19 U/L (Less than 34); AST (SGOT) 17 U/L (11-34); Albumin 3.6 g/dL (3.1-4.5); Alkaline Phosphatase 298 U/L (40-110); Anion Gap 15 mmol/L (10-20); BUN (Urea Nitrogen) 15 mg/dL (9.8-20.1); Bilirubin, Total 0.4 mg/dL (0.3-1.2); Calc. Creatinine Clearance 0 mL/min (70-130); Calcium 9.4 mg/dL (7.8-10.44); Carbon Dioxide 27 mmol/L (23-31); Chloride 100 mmol/L (98-107); Globulin 3.9 g/dL (2.4-3.5); Glucose 113 mg/dL (80-115); Potassium 3.5 mmol/L (3.5-5.1); Sodium 138 mmol/L (136-145)
== END 2025-08-04 00:27 | disposition home or self-care (01) ==
LOC: ERS 19:58
DX: J44.1 Chronic obstructive pulmonary disease with (acute) exacerbation (principal); I25.2 Old myocardial infarction; I25.10 Atherosclerotic heart disease of native coronary artery without angina pectoris; I10 Essential (primary) hypertension; F17.210 Nicotine dependence, cigarettes, uncomplicated
CPT/HCPCS: 71045; 80053; 83880; 84484; 85025; 93005; J1100; 96374